=== PATIENT | female | born 1975 | race Caucasian/White ===

== ENCOUNTER → 2017-01-05 | Outpatient (CLI) | payer BC ==
[~2017-01-05] MED LIST: ACET-1311 PO; IBUP600T44 PO; MTH2 PO; MULT-506 PO
== END ==
LOC: C.LAB1850 10:28
PROVIDERS: ATTEND Obstetrics & Gynecology
DX: Z34.90 Encounter for supervision of normal pregnancy, unspecified, unspecified trimester (principal)

== ENCOUNTER → 2017-01-12 | Outpatient (CLI) | payer BC | END | disposition home or self-care (01) | LOC: C.LAB1850 10:47 | PROVIDERS: ATTEND Obstetrics & Gynecology | DX: O02.1 Missed abortion (principal) ==

== ENCOUNTER → 2017-08-21 | Outpatient (CLI) | payer BC ==
--- NOTE | 2017-08-24 15:40 | MAMMOGRAPHY REPORT ---
BILATERAL FIRST EVER DIGITAL SCREENING MAMMOGRAM TOMOSYNTHESIS WITH CAD: 08/21/2017 CLINICAL HISTORY: Routine screening. Baseline exam. TECHNIQUE: Breast tomosynthesis in addition to standard 2D mammography was performed. Current study was also evaluated with a Computer Aided Detection (CAD) system. COMPARISON: No prior exams were available for comparison. BREAST COMPOSITION: The tissue of both breasts is heterogeneously dense, which may obscure small mas ses. FINDINGS: There are possible faint grouped calcifications seen within the left breast along the poste rior nipple line on the MLO view, not clearly evident on the cc view. Recommend spot magnification views for further evaluation. Additionally, there is an oval circumscribed 11 mm mass seen within th e right lateral breast at approximately 9:00 posteriorly, best seen on the tomosynthesis images. Rec ommend ultrasound and possible additional spot compression views for further evaluation. The remainder of both breasts demonstrate no suspicious masses, calcifications, or areas of enterprise solutions architect ural distortion. IMPRESSION: ACR BI-RADS CATEGORY 0: INCOMPLETE EVALUATION: NEED ADDITIONAL IMAGING EVALUATION Right breast mass and left breast calcifications, for which additional imaging evaluation is recommen ded. The patient will be called to schedule an appointment. Approximately 10% of breast cancers are not detected with mammography. A negative mammographic report should not delay biopsy if a clinically suggestive mass is present. Amparo Andrade M.D. /:08/21/2017 15:46:41 Pharmacy District Manager: Emilie PLASCENCIA(Derek)(Med)(BD), [facility] letter sent: Addl Imaging 0 BI-RADS Code: ACR BI-RADS Category 0: Incomplete Evaluation: Need Additional Imaging Evaluation
== END | disposition home or self-care (01) ==
LOC: C.MAMM 10:26
PROVIDERS: ATTEND Nurse Practitioner Family
DX: Z12.31 Encounter for screening mammogram for malignant neoplasm of breast (principal); N63.10 Unspecified lump in the right breast, unspecified quadrant; R92.0 Mammographic microcalcification found on diagnostic imaging of breast

== ENCOUNTER → 2017-09-22 | Outpatient (CLI) | payer BC ==
--- NOTE | 2017-09-23 07:58 | MAMMOGRAPHY REPORT ---
UNILATERAL LEFT DIGITAL DIAGNOSTIC MAMMOGRAM AND TARGETED RIGHT ULTRASOUND: 09/22/2017 CLINICAL HISTORY: 42-year-old woman called back from baseline screening mammogram for a grouping of c alcifications in the left breast and 11 mm mass in the right breast at approximately 9:00. No family history of breast cancer. TECHNIQUE: Spot magnification left CC and ML views were obtained. COMPARISON: Comparison is made to exam dated: 08/21/2017 mammogram - [facility]. BREAST COMPOSITION: The tissue of the left breast is extremely dense, which lowers the sensitivity o f mammography. FINDINGS: There is a small, 3.4 mm grouping of amorphous microcalcifications in the upper inner middl e one third of the left breast. No associated architectural distortion or obvious mass. No other gr oupings of microcalcifications are identified in either breast. Although they could represent fibroc ystic change, they are the only discrete cluster in either breast and long-term stability is not demo nstrated. Therefore, definitive characterization with a stereotactic guided biopsy is recommended. Targeted ultrasound was performed in the lateral right breast. In the 8:00 axis, 3 cm from the nippl e, there is a gently lobulated circumscribed hypoechoic solid mass measuring 11.4 x 6.5 x 1.9 mm. Al though this could represent a benign fibroadenoma, given the solid nature definitive characterization with an ultrasound-guided core biopsy is recommended. This correlates with the mammographic mass. IMPRESSION: ACR BI-RADS CATEGORY 4: SUSPICIOUS, TARGETED ULTRASOUND ACR BI-RADS CATEGORY 4: SUSPICIO US 1. Right breast ultrasound-guided core biopsy is recommended for an indeterminate solid gently lobul ated parallel 11.4 mm mass in the 8:00 right breast, thought to correlate with the mammographic mass. 2. Left breast stereotactic guided biopsy is recommended for a 3.4 mm grouping of amorphous microcal cifications in the upper inner quadrant. These results and recommendations were discussed with the patient at the time of the exam. She tenta tively scheduled the bilateral breast biopsies prior to leaving our department. Approximately 10% of breast cancers are not detected with mammography. A negative mammographic report should not delay biopsy if a clinically suggestive mass is present. Brenna Daigle M.D. ay/:09/22/2017 12:08:20 Base Remover: Yadira PLASCENCIA(Derek)(M), [facility] letter sent: Abnormal 4/5 BI-RADS Code: ACR BI-RADS Category 4: Suspicious Ultrasound BI-RADS: ACR BI-RADS Category 4: Suspici ous
== END | disposition home or self-care (01) ==
LOC: C.MAMM 09:21
PROVIDERS: ATTEND Nurse Practitioner Family
DX: R92.1 Mammographic calcification found on diagnostic imaging of breast (principal); N63.10 Unspecified lump in the right breast, unspecified quadrant

== ENCOUNTER → 2017-09-30 | Outpatient (CLI) | payer BC, OTHER ==
--- NOTE | 2017-09-30 08:48 | Discharge Instructions ---
Discharge Instructions Procedure Procedure Date: Sep 30, 2017. Reason for visit: Left Calcs; Us Bx Right Mass. Discharge Discharge Date: Sep 30, 2017. Discharge Diagnosis: status post breast biopsy Instructions Activity Recommendations: Additional Limitations (see below) Return to School/Work: no limitations Recommended Home Diet: No Limitations Provider Instructions: ACTIVITY RECOMMENDATIONS: * No lifting, pushing, pulling or exercising the affected side for three days. RETURN TO SCHOOL/WORK: * You may return to work/school after the procedure, but do not perform any strenuous activities for 24 to 48 hours. MEDICATIONS: * Tylenol (two 325 mg) every four to six hours if needed for mild pain (if not allergic to Tylenol). DIET: * Resume previous diet. SPECIAL CARE INSTRUCTIONS: * Keep biopsy site dry for 24 hours. May shower after 24 hours, but do not soak (bathe) incision. * May remove Tegaderm (plastic patch) tomorrow AFTER showering. * Leave the steri-strips on for one week. Allow the steri-strips to fall off by themselves. If not off after one week, you may remove them. You may place a Bandaid crosswise over the strips, if desired. * Apply ice 10 minutes on and 10 minutes off as needed. * Wear a bra at bedtime to sleep more comfortably for 2-3 days. * Your referring physician should have the results after approximately 5 to 7 business days. * Call for unusual bleeding, fever, drainage, etc or if you have any questions call during normal business hours or after hours call Dr Andrade, . FOLLOW UP VISIT: Follow-up with Referring Physician as scheduled. Allergies Coded Allergies: Penicillins (Verified Adverse Reaction, Unknown, SEVERE STOMACH PAIN, ) No Known Allergies (Verified , 03/31/03) Willam Delgado Recommendations: Call your doctor if: * Temperature above 101 degrees * Pain not relieved by pain medicine ordered * There is increased drainage or redness from any incision * You have any unanswered questions or concerns. Your Doctors Instructions noted above were prepared by provider Amparo Andrade. Patient Signature Section: Patient Instructions Signature Page Klaudia Tanner Patient (or Guardian) Signature/Date: I have read and understand the instructions given to me by my caregivers. Caregiver/RN/Doctor Signature/Date: The above-named patient and/or guardian has received patient instructions on this date. + Original Patient Signature Page (only) stays with chart. Please make copy for patient.
--- NOTE | 2017-10-01 07:54 | MAMMOGRAPHY REPORT ---
ULTRASOUND GUIDED BIOPSY RIGHT BREAST: 09/30/2017 CLINICAL HISTORY: Right 8:00 breast mass. PATIENT CONSENT: The procedure, risks and benefits were discussed with the patient and informed writt en consent was obtained. A timeout was performed immediately prior to the procedure. PROCEDURE DESCRIPTION: With ultrasound guidance, aseptic technique, and lidocaine as the local anesth etic (1% lidocaine to anesthetize the skin and 1% lidocaine with epinephrine to anesthetize the deepe r tissues), the mass of concern in the right 8:00 breast was sampled 3 times with a 14-gauge Achieve biopsy needle. Immediately thereafter, with ultrasound guidance, aseptic technique, and lidocaine as the local anesthetic, a metallic localizer clip was placed centrally in the mass. Direct pressure w as applied to the site immediately post procedure and hemostasis was achieved. Postprocedure unilate ral mammograms were performed to confirm placement of the clip in the expected location of the breast mass. The patient tolerated the procedure without complication. She was given wound care instructi ons. The specimens were sent to pathology for analysis. COMPARISON: Comparison is made to exams dated: 09/22/2017 ultrasound, 09/22/2017 mammogram, and 08/21/2017 mammogram - [facility]. IMPRESSION: ULTRASOUND GUIDED BIOPSY Ultrasound-guided core needle biopsy of the right 8:00 breast mass, with clip placement. The patient will receive pathology results from her referring provider. Amparo Andrade M.D. /:09/30/2017 09:06:45 Vocational Training Teacher: Yadira Parker, [facility]
--- NOTE | 2017-10-01 07:54 | MAMMOGRAPHY REPORT ---
STEREOTACTIC GUIDED BIOPSY LEFT BREAST: 09/30/2017 CLINICAL HISTORY: Indeterminate calcifications in the left upper inner quadrant. PATIENT CONSENT: The procedure, risks, benefits, and alternatives of stereotactic biopsy with clip pl acement were discussed with the patient, and verbal and written consent was obtained. A timeout was performed immediately prior to the procedure. PROCEDURE DESCRIPTION: With stereotactic guidance, aseptic technique, and lidocaine as a local anesth etic (1% lidocaine to anesthetize the skin and 1% lidocaine with epinephrine to anesthetize the deepe r tissues), the calcifications of concern in the left upper inner quadrant were sampled multiple time s with a 9-gauge vacuum-assisted biopsy needle (Kupoya petite). The path of approach was medial . The specimen radiograph demonstrates calcifications to be present in the samples. A metallic zack er clip was placed at the biopsy site. This was confirmed on postprocedure mammograms. Direct press ure was applied at the biopsy site and hemostasis was readily achieved. The patient tolerated the pr ocedure without complication. She was given wound care instructions. COMPARISON: Comparison is made to exams dated: 09/22/2017 ultrasound, 09/22/2017 mammogram, and 08/21/2017 mammogram - [facility]. IMPRESSION: STEREOTACTIC GUIDED BIOPSY Stereotactic biopsy of indeterminate calcifications in the left upper inner quadrant, with clip place ment. The patient will receive pathology results from her referring provider. Amparo Andrade M.D. /:09/30/2017 08:49:12 Foreign Language Professor: Yadira Parker, [facility]
--- NOTE | 2017-10-01 07:59 | MAMMOGRAPHY REPORT ---
BILATERAL DIGITAL DIAGNOSTIC MAMMOGRAM: 09/30/2017 CLINICAL HISTORY: Status post bilateral breast biopsies. TECHNIQUE: Postprocedural bilateral CC and ML views were obtained. COMPARISON: Comparison is made to exams dated: 09/30/2017 ultrasound biopsy, 09/22/2017 ultrasound, 09/22 mammogram, and 08/21/2017 mammogram - [facility]. BREAST COMPOSITION: The tissue of both breasts is extremely dense, which lowers the sensitivity of m ammography. FINDINGS: A new biopsy marker clip is seen at the site of the biopsied calcifications in the left med ial breast at approximately 9 to 10:00. A new biopsy marker clip is also seen at the site of the bio psied mass in the right 8:00 breast. No significant postbiopsy hematoma is seen. IMPRESSION: POST PROCEDURE IMAGING FOR MARKER PLACEMENT New biopsy marker clips status post bilateral breast biopsies. Pathology results are pending. Approximately 10% of breast cancers are not detected with mammography. A negative mammographic report should not delay biopsy if a clinically suggestive mass is present. Amparo Andrade M.D. ah/:09/30/2017 10:16:19 Credit Collection Specialist: Elvie PLASCENCIA(Derek)(M), [facility] BI-RADS Code: Post Procedure Imaging For Marker Placement
== END | disposition home or self-care (01) ==
LOC: C.MAMM 07:55
PROVIDERS: ATTEND Nurse Practitioner Family
DX: N62 Hypertrophy of breast (principal); D24.1 Benign neoplasm of right breast; R92.0 Mammographic microcalcification found on diagnostic imaging of breast